=== PATIENT | female | born 1995 | race American Indian/Alaskan Native ===

== ENCOUNTER 2020-08-27 17:07 | Emergency (ER) | payer BC ==
[2020-08-27 17:22] VITALS: BP 149/86
--- NOTE | 2020-08-27 18:35 | Event Note ---
ED Screening Note ED Screening Note: states she is having substernal and left sided CP since yesterday +pain with deep breath +nausea no radiation of the pain no leg pain or swelling no cough no v/d no fever no sore throat no rhinorrhea +SOB PMHx tachycardia, asthma allergy: morphine LNMP two months ago, irregular cycles no recent surgery, no recent travel, no sick contacts, no hormone/OCP use This initial assessment/diagnostic orders/clinical plan/treatment(s) is/are subject to change based on patients health status, clinical progression and re- assessment by fellow clinical providers in the ED. Further treatment and workup at subsequent clinical providers discretion. Patient/guardian urged not to elope from the ED as their condition may be serious if not clinically assessed and managed. Initial orders include: labs, ekg, cxr
[2020-08-27 19:03] LABS: Basophils # (Auto) 0.1 K/mm3 (0.0-0.1); Basophils % (Auto) 0.6 % (0.0-1.8); Eosinophils % (Auto) 0.1 % (0.0-4.3); Hematocrit 41.4 % (30.3-42.9); Hemoglobin 13.5 gm/dl (10.1-14.3); Lymphocytes # (Auto) 2.9 K/mm3 (1.2-5.4); Lymphocytes % (Auto) 33.2 % (13.4-35.0); Mean Corpuscular HGB Conc 33 % (30-34); Mean Corpuscular Volume 78 fl (79-97); Monocytes # (Auto) 0.6 K/mm3 (0.0-0.8); Monocytes % (Auto) 6.9 % (0.0-7.3); Platelet Count 401 K/mm3 (140-440); Red Blood Count 5.29 M/mm3 (3.65-5.03); Red Cell Distribution Width 15.8 % (13.2-15.2)
[2020-08-27 19:29] LABS: Alanine Aminotransferase 11 units/L (7-56); Albumin 4.3 g/dL (3.9-5); BUN/Creatinine Ratio 18; Blood Urea Nitrogen 14 mg/dL (7-17); Calcium 9.2 mg/dL (8.4-10.2); Hemolysis Index 7
--- NOTE | 2020-08-27 20:32 | XRay Report ---
CHEST 2 VIEWS INDICATION / CLINICAL INFORMATION: CP, SOB, tachycardia. COMPARISON: None available. FINDINGS: SUPPORT DEVICES: None. HEART / MEDIASTINUM: No significant abnormality. LUNGS / PLEURA: Clear lungs. No significant pleural effusion. No pneumothorax. ADDITIONAL FINDINGS: No significant additional findings. IMPRESSION: 1. No acute abnormality of the chest. Signer Name: Nicholas Longo MD Signed: 08/27/2020 8:27 PM Workstation Name: [id number]
--- NOTE | 2020-08-27 20:56 | Emergency Department Report ---
ED Chest Pain HPI - General Chief Complaint: Arrhythmia/Palpitations Stated Complaint: CHEST PAIN Time Seen by Provider: 08/27/20 18:32 Source: patient Mode of arrival: Ambulatory Limitations: No Limitations - History of Present Illness Initial Comments: 25-year-old obese F [place] female with a known past medical history of resting tachycardia of an unknown etiology for which she states has been worked up extensively by cardiology with no significant findings presents emergency department complaining of a pain along her sternal border which is worse with palpation and range of motion of unknown etiology. Reports no hemoptysis, no hematemesis no fever, chills, sweats. no nausea or vomiting MD Complaint: chest pain -: days(s) (2) Pain Location: substernal Pain Radiation: none Severity: mild, moderate Quality: sharp, dull Consistency: intermittent Worsens With: palpation, movement (Movement of upper extremities and tightening of chest and deep breathe) re: denies: nausea, vomting, diaphoresis Other Symptoms: denies: cough, syncope, rash, acid taste in mouth, leg swelling, palpitations - Related Data Previous Rx's Medication Instructions Recorded Last Taken Type Ketorolac [Toradol] 10 mg PO Q6H PRN #14 tablet 08/27/20 Unknown Rx Allergies Allergy/AdvReac Type Severity Reaction Status Date / Time morphine AdvReac Hives Verified 08/27/20 17:22 Heart Score - HEART Score History: Slightly suspicious EKG: Normal Age: < 45 Risk factors: 1-2 risk factors Troponin: < normal limit HEART Score: 1 - EKG Read Time Time EKG Completed: 07:00 EKG Read Time: 07:15 ED Review of Systems ROS: Stated complaint: CHEST PAIN Other details as noted in HPI Comment: All other systems reviewed and negative ED Past Medical Hx - Past Medical History Hx Asthma: Yes Additional medical history: arrythmias - Surgical History Additional Surgical History: tonsillectomy/adnoids - Social History Smoking Status: Never Smoker Substance Use Type: None - Medications Home Medications: Home Medications Medication Instructions Recorded Confirmed Last Taken Type Ketorolac [Toradol] 10 mg PO Q6H PRN #14 tablet 08/27/20 Unknown Rx ED Physical Exam - General Limitations: No Limitations General appearance: alert, in no apparent distress - Head Head exam: Present: atraumatic, normocephalic, normal inspection - Eye Eye exam: Present: normal appearance, PERRL, EOMI. Absent: scleral icterus, conjunctival injection, periorbital swelling - ENT ENT exam: Present: normal exam, mucous membranes moist, TM's normal bilaterally - Neck Neck exam: Present: normal inspection, full ROM - Respiratory Respiratory exam: Present: normal lung sounds bilaterally, chest wall tenderness (Tenderness along the sternal border with palpation pain is reproducible with opposed adduction of the upper extremities.). Absent: respiratory distress - Cardiovascular Cardiovascular Exam: Present: regular rate, normal rhythm. Absent: systolic murmur, diastolic murmur, rubs, gallop - GI/Abdominal GI/Abdominal exam: Present: soft, normal bowel sounds - Extremities Exam Extremities exam: Present: normal inspection, normal capillary refill - Back Exam Back exam: Present: normal inspection. Absent: CVA tenderness (R), CVA tenderness (L) - Neurological Exam Neurological exam: Present: alert, oriented X3, CN II-XII intact, normal gait - Psychiatric Psychiatric exam: Present: normal affect, normal mood - Skin Skin exam: Present: warm, dry, intact, normal color. Absent: rash, cyanosis, diaphoretic ED Course Vital Signs 08/27/20 17:19 Temperature 99.4 F Pulse Rate 121 H Respiratory 28 H Rate Blood Pressure 149/86 O2 Sat by Pulse 99 Oximetry COSMO score - Cosmo Score Age > 65: (0) No Aspirin use within the Past 7 Days: (0) No 3 or more CAD Risk Factors: (0) No 2 or more Angina events in past 24 hrs: (0) No Known CAD with more than 50% Stenosis: (0) No Elevated Cardiac Markers: (0) No ST Deviation Greater than 0.5mm: (0) No COSMO Score: 0 ED Medical Decision Making - Lab Data Result diagrams: 08/27/20 18:52 08/27/20 18:52 - EKG Data EKG shows normal: sinus rhythm Rate: normal (Heart rate 82) - EKG Data Interpretation: normal EKG - Radiology Data Radiology results: report reviewed [address] [place] [id number] XRay Report Signed Patient: INEZ SANTORO MR#: [id number] : 1995 Acct:[id number] Age/Sex: 25 / F ADM Date: 08/27/20 Loc: ED Attending Dr: Ordering Physician: ALFRED QUACH Date of Service: 08/27/20 Procedure(s): XR chest routine 2V Accession Number(s): [id number] cc: ALFRED QUACH Fluoro Time In Minutes: CHEST 2 VIEWS INDICATION / CLINICAL INFORMATION: CP, SOB, tachycardia. COMPARISON: None available. FINDINGS: SUPPORT DEVICES: None. HEART / MEDIASTINUM: No significant abnormality. LUNGS / PLEURA: Clear lungs. No significant pleural effusion. No pneumothorax. ADDITIONAL FINDINGS: No significant additional findings. IMPRESSION: 1. No acute abnormality of the chest. Signer Name: Nicholas Longo MD Signed: 08/27/2020 8:27 PM Workstation Name: [id number] Transcribed By: VY Dictated By: Nicholas Longo MD Electronically Authenticated By: Nicholas Longo MD Signed Date/Time: 08/27/202026 DD/ 26 TD/TT: - Medical Decision Making This patient presents with chest pain that is very unlikely angina or acute coronary syndrome. The emergency department evaluation has not identified any cause for suspicion that this chest pain has a cardiac etiology. Based on their history, EKG (which showed no evidence of ischemia or infarction) and imaging, in addition to the patient's physical exam, I see no evidence at this time for a malignant etiology for the patient's chest pain. There is no acute evidence for pulmonary embolus, acute myocardial infarction, pneumothorax, Boerhaeve syndrome, cardiac tamponade, thoracic artery dissection, or any other emergent cardiac, pulmonary or aortic pathology. Given the low pre-test probability for cardiac etiology of chest pain and the absence of any sign of ischemia or infarction, discharge for outpatient follow-up and further evaluation is reasonable. I have explained to the patient that even though a cardiac problem is very unlikely, follow-up and further testing is required to reduce further the already small uncertainty that exists. Other life-threatening diagnoses have been considered. The patient understands the need to return immediately if their symptoms worsen or they develop any new symptoms, and not to engage in any significant exertional activity until follow-up is obtained. Critical care attestation.: If time is entered above; I have spent that time in minutes in the direct care of this critically ill patient, excluding procedure time. ED Disposition Clinical Impression: Chest pain Disposition: DC-01 TO HOME OR SELFCARE Is pt being admited?: No Does the pt Need Aspirin: No Condition: Stable Instructions: Nonspecific Chest Pain, Adult, Chest Wall Pain, [id number], Chest Wall Pain, Costochondritis Prescriptions: Ketorolac [Toradol] 10 mg PO Q6H PRN #14 tablet PRN Reason: Pain Referrals: [facility] [Provider Group] - 3-5 Days TACOS VILLELA MD [Staff Physician] - 3-5 Days
--- NOTE | 2020-08-29 10:44 | Electrocardiograph Report ---
[facility] Test Date: 2020-08-27 Test Time: 18:44:04 Pat Name: INEZ SANTORO Department: Room: Gender: F Shampoo Assistant: : 1995 Requested By: MED ANTHONY Order Number: [id number] Reading MD: Glendy Ngo Measurements Intervals [place]gil Rate: 80 P: 71 CT: 130 QRS: -44 QRSD: 79 T: 71 QT: 370 QTc: 426 Interpretive Statements Sinus rhythm Left axis deviation No previous ECG available for comparison Electronically Signed On 08-29-2020 10:43:48 EDT by Glendy Ngo
== END 2020-08-27 23:11 | disposition home or self-care (01) ==
LOC: ED 17:07
DX: R07.9 Chest pain, unspecified (principal); J45.909 Unspecified asthma, uncomplicated; Z79.899 Other long term (current) drug therapy; Z88.6 Allergy status to analgesic agent; Z98.890 Other specified postprocedural states
CPT/HCPCS: 36415; 71046; 80053; 82550; 83735; 83880; 84443; 84484; 84703; 85025; 85379; 93005